=== PATIENT | female | born 1945 | race Caucasian/White ===

== ENCOUNTER 2017-07-30 05:53 | Day surgery (SDC) | payer MEDICARE, OTHER ==
[2017-07-30] MEDS ORDERED: Midazolam 1 MG/ML 2 ML SDV IV ONE ×3 (05:54→06:53)
[2017-07-30] MEDS ORDERED: fentaNYL 100 MCG/2 ML SDV IV ONE ×3 (05:54→06:52)
[2017-07-30] MEDS ORDERED: Sodium Chloride 0.9% 10 ML Syringe FLUSH PRN (06:00)
[2017-07-30] MEDS ORDERED: Dextrose 5%-0.45% NaCl 1,000 ML IV SCH (06:00)
[2017-07-30] MEDS ORDERED: Midazolam 1 MG/ML 2 ML SDV ONE (06:16)
[2017-07-30] MEDS ORDERED: fentaNYL 100 MCG/2 ML SDV ONE (06:17)
--- NOTE | 2017-07-30 08:23 | OR ---
DATE: 07/30/2017 PROCEDURE: Esophagogastroduodenoscopy and multiple pinch biopsies. INSTRUMENT USED: GIF-Q180 Olympus video panendoscope. PREMEDICATIONS: No oral topical anesthesia used. Fentanyl 100 mcg intravenous, Versed 1.5 mg intravenous. Nasal O2 cannula. The procedure was done under pulse oximetry, BP recording, and groundwater monitoring technician. INDICATION: The patient with persistent nausea and dyspepsia unexplained and not responsive to medical measures. Esophagogastroduodenoscopy is performed for detection of any active erosive lesions, Ford's esophagus and/or malignancy also under consideration, H. pylori status to be determined, endoscopic hemostasis therapy if needed. DESCRIPTION OF PROCEDURE: The scope was passed with ease. Adequate visualization of the esophagus was made from proximal to distal areas. No upper esophageal lesions identified. No distal esophageal stricture. No uphill or downhill esophageal varices. No Aster-Renner tear. No evidence of erosive esophagitis by [place] criteria. No esophageal polyp or tumor mass identified. Z-line was seen at around 39 cm distal to the oral verge, configuration consistent with grade 1 by ZAP classification. No proximal gastric varices noted. Gastric fundus examination by retroflexion showed no polypoid lesions. No gastric ulcer, malignant mass, or vascular ectasia identified. Duodenal bulb showed no ulcer. Visualized second part of the duodenum was unremarkable. Multiple pinch biopsies were taken from the gastric antrum and proximal body and sent for PyloriTek test for H. pylori, and if negative in an hour, tissue is to be sent for histopathology. No bleeding was noted from any of the visualized areas at the completion of examination. Photographs were taken of the duodenal bulb, gastric antrum, fundus, and distal esophagus. IMPRESSION: Normal study. The patient tolerated the procedure well. [facility] /[id number]
== END 2017-07-30 09:07 | disposition home or self-care (01) ==
LOC: DL.ENDO 05:53
PROVIDERS: ATTEND Internal Medicine Gastroenterology
DX: R11.0 Nausea (principal); R10.13 Epigastric pain; B96.81 Helicobacter pylori [H. pylori] as the cause of diseases classified elsewhere; I10 Essential (primary) hypertension; E78.5 Hyperlipidemia, unspecified; E03.9 Hypothyroidism, unspecified; F41.1 Generalized anxiety disorder; F32.9 Major depressive disorder, single episode, unspecified; F17.210 Nicotine dependence, cigarettes, uncomplicated; Z88.1 Allergy status to other antibiotic agents
CPT/HCPCS: 43239; J2250; J3010; J7042

== ENCOUNTER 2017-08-03 06:53 | Day surgery (SDC) | payer MEDICARE, OTHER ==
[~2017-08-03 06:53] MED LIST: Dextrose 5%-0.45% NaCl 1,000 ML IV SCH; Midazolam 1 MG/ML 2 ML SDV ONE; Sodium Chloride 0.9% 10 ML Syringe FLUSH PRN; fentaNYL 100 MCG/2 ML SDV ONE
[2017-08-03] MEDS ORDERED: fentaNYL 100 MCG/2 ML SDV IV ONE ×3 (06:54→07:35)
[2017-08-03] MEDS ORDERED: Midazolam 1 MG/ML 2 ML SDV IV ONE ×6 (06:54→07:42)
--- NOTE | 2017-08-03 10:56 | OR ---
DATE: 08/03/2017 PROCEDURES: Total colonoscopy, narrow-band imaging, and multiple pinch biopsies. INSTRUMENT USED: PCF-H180 [place] Olympus video colonoscope. PREMEDICATIONS: Fentanyl 100 mcg intravenous, Versed 3 mg intravenous. Nasal O2 cannula. The procedure was done under pulse oximetry, BP recording, and cardiac technician. INDICATION: The patient with persistent abdominal pain and progressive weight loss unexplained, not responsive to medical measures. Colonoscopic examination is done for detection of any polypoid lesions and removal, endoscopic hemostasis therapy if needed. DESCRIPTION OF PROCEDURE: Initial rectal exam was unremarkable. Rigid anoscopy was normal. The colonoscope was passed with ease. Numerous scattered diverticula were noted in the distal left colon along with deformity. The examination was compromised in a few areas due to the presence of adherent fecal material that could not be aspirated clear. The scope was passed with ease up to the ileocecal area. Photographs were taken of the cecum identified by ileocecal folds but were found to be a bit prominent. NBI views were obtained. Multiple pinch biopsies were obtained and sent for histopathology. No bleeding was noted from any of the visualized areas at the commencement of the examination. No stricture. No vascular ectasia. No large isolated ulcerations seen. No evidence of diffuse inflammatory bowel disease in the form of friability, contact bleeding, or ulcerations. Probing the proximal sides of folds and flexures using adequate distention and clearing up the stool material, withdrawal of the scope was made. Cecum to rectum time over 6 minutes. No bleeding was noted from any of the visualized areas at the completion of examination. IMPRESSION: Diverticulosis. The patient tolerated the procedure well. [facility] /[id number]
== END 2017-08-03 10:07 | disposition home or self-care (01) ==
LOC: DL.ENDO 06:53
PROVIDERS: ATTEND Internal Medicine Gastroenterology
DX: D12.0 Benign neoplasm of cecum (principal); K57.30 Diverticulosis of large intestine without perforation or abscess without bleeding; I10 Essential (primary) hypertension; E03.9 Hypothyroidism, unspecified; E78.5 Hyperlipidemia, unspecified; F41.1 Generalized anxiety disorder; F32.9 Major depressive disorder, single episode, unspecified; Z88.1 Allergy status to other antibiotic agents; F17.210 Nicotine dependence, cigarettes, uncomplicated
CPT/HCPCS: 45380; J2250; J3010; J7042; 88305

== ENCOUNTER 2018-03-03 08:19 | Day surgery (SDC) | payer MEDICARE, OTHER ==
[2018-03-03] MEDS ORDERED: Dexamethasone 4 MG/ML SDV IV ONE (08:20)
[2018-03-03] MEDS ORDERED: Midazolam 1 MG/ML 2 ML SDV IV ONE (08:20)
[2018-03-03] MEDS ORDERED: Sodium Chloride 0.9% 10 ML Syringe IV ONE (08:20)
[2018-03-03] MEDS ORDERED: Cataract Ophth Solution EYELF ONE (08:30)
[2018-03-03] MEDS ORDERED: Moxifloxacin 0.5% Ophth Soln 3 ML Bottle EYELF ONE (08:30)
[2018-03-03] MEDS ORDERED: Ondansetron 4 MG/2 ML SDV IVPUSH PRN (08:30)
[2018-03-03] MEDS ORDERED: Phenylephrine 10% Ophth Soln 5 ML Bot EYELF PRN (08:30)
[2018-03-03] MEDS ORDERED: Proparacaine 0.5% Ophth Soln 15 ML Bottle EYELF ONE (08:30)
[2018-03-03] MEDS ORDERED: Sodium Chloride 0.9% 10 ML Syringe FLUSH PRN (08:30)
[2018-03-03] MEDS ORDERED: Phenylephrine 10% Ophth Soln 5 ML Bot EYELF ONE (08:30)
[2018-03-03] MEDS ORDERED: Povidone-Iodine 5% Sterile Ophth Soln 30 ML Bottle EYELF ONE ×2 (08:30→09:26)
[2018-03-03] MEDS ORDERED: Acetaminophen 325 MG Tab PO PRN (08:30)
[2018-03-03] MEDS ORDERED: Timolol Maleate 0.5% Ophth Soln 5 ML Bottle EYELF ONE (08:30)
[2018-03-03] MEDS ORDERED: Tetracaine HCl/PF 0.5% 4 ML Bottle EYELF ONE (09:26)
[2018-03-03] MEDS ORDERED: Lidocaine 1% 30 ML SDV INJECT ONE (09:29)
[2018-03-03] MEDS ORDERED: Balanced Salt Solution Plus Ophth Irrig 500 ML Bottle IOCULAR ONE (09:30)
[2018-03-03] MEDS ORDERED: Chondroitin Sulfate/Hyaluronate Sodium Ophth Inj 0.75 ML Syringe EYELF ONE (09:30)
[2018-03-03] MEDS ORDERED: Vancomycin 500 MG SDV EYELF ONE (09:32)
[2018-03-03] MEDS ORDERED: Dexamethasone/Neomycin/Polymyxin B Ophth Oint 3.5 GM Tube EYELF ONE (09:39)
[2018-03-03] MEDS ORDERED: Apraclonidine 0.5% Ophth Soln 5 ML Bot EYELF ONE (09:39)
--- NOTE | 2018-03-03 16:17 | OR ---
DATE: 03/03/2018 PREOPERATIVE DIAGNOSIS: Visually significant mixed cataract, left eye. POSTOPERATIVE DIAGNOSIS: Visually significant mixed cataract, left eye. PROCEDURE: Extracapsular cataract extraction with intraocular lens implant, left eye. ANESTHESIA: Topical/local MAC. COMPLICATIONS: None. INDICATION: Ms. Tejeda was seen in the clinic. She has complained of blurred vision, difficulty reading, and her vision is progressively changed over time. Best spectacle corrected vision to the level of 20/50. Examination reveals mixed nuclear and cortical cataract. I explained options. I offered cataract surgery and I explained risks including the potential for infection, retinal detachment, loss of vision amongst others. We discussed implant options. She has requested a mono focal implant. OPERATIVE DESCRIPTION: After informed consent was obtained and the risks, benefits, and alternatives were explained, the patient was brought to the operative suite and topical anesthesia was administered. The patient was then prepped and draped in the sterile fashion and attention was placed on the left eye. A sterile lid speculum was placed into the left eye to allow operative exposure. A full-thickness paracentesis was made in the temporal portion of the operative eye. Preservative-free lidocaine 0.1 mL was injected into the anterior chamber followed by viscoelastic. A full-thickness corneal incision was then made into the anterior chamber. A bent needle cystotome was used to create a small skyler in the anterior capsule. The capsulorrhexis forceps was then used to create a 360-degree curvilinear capsulorrhexis. The nucleus was then removed using a phacoemulsification handpiece and the remaining cortical material was then removed with irrigation and aspiration handpiece. Following removal of the cortical material, the capsular bag was then inspected and noted to be free of any holes or tears. Viscoelastic was then injected into the capsular bag and the intraocular lens was inserted into the capsular bag. The viscoelastic material was then removed from both the anterior and posterior chambers and from behind the IOL. The lens and capsular bag were then reinspected. The IOL was well centered and the capsular bag intact. The wound and paracentesis sites were inspected and hydrated with balanced saline solution. Both were found to be self- sealing. The intraocular pressure was assessed digitally and found to be within normal range. A good red reflex was noted at the completion of the procedure. No complications occurred during the operation. At the completion of the procedure, Maxitrol, Voltaren, and Iopidine drops were placed into the operative eye. A sterile eye shield was placed over the operative eye and the patient was transported to the postoperative recovery area having tolerated the procedure well. Postoperative instructions were given along with a postoperative appointment. The patient was advised to call with any questions or concerns. [facility] /[id number]
== END 2018-03-03 10:43 | disposition home or self-care (01) ==
LOC: DL.SDS 08:19
PROVIDERS: ATTEND Ophthalmology
DX: H25.812 Combined forms of age-related cataract, left eye (principal); I10 Essential (primary) hypertension; F17.210 Nicotine dependence, cigarettes, uncomplicated; E78.5 Hyperlipidemia, unspecified; E03.9 Hypothyroidism, unspecified; F41.9 Anxiety disorder, unspecified; Z79.899 Other long term (current) drug therapy; Z79.82 Long term (current) use of aspirin
CPT/HCPCS: 00142; 66984; A9270; C1780; J1100; J2250; J3370; J7050

== ENCOUNTER 2018-03-10 07:24 | Day surgery (SDC) | payer MEDICARE, OTHER ==
[2018-03-10] MEDS ORDERED: Dexamethasone 4 MG/ML SDV IV ONE (07:25)
[2018-03-10] MEDS ORDERED: Midazolam 1 MG/ML 2 ML SDV IV ONE (07:25)
[2018-03-10] MEDS ORDERED: Sodium Chloride 0.9% 10 ML Syringe IV ONE (07:25)
[2018-03-10] MEDS ORDERED: Acetaminophen 325 MG Tab PO PRN (07:30)
[2018-03-10] MEDS ORDERED: Ondansetron 4 MG/2 ML SDV IVPUSH PRN (07:30)
[2018-03-10] MEDS ORDERED: Cataract Ophth Solution EYERT ONE (07:30)
[2018-03-10] MEDS ORDERED: Proparacaine 0.5% Ophth Soln 15 ML Bottle EYERT ONE (07:30)
[2018-03-10] MEDS ORDERED: Moxifloxacin 0.5% Ophth Soln 3 ML Bottle EYERT ONE (07:30)
[2018-03-10] MEDS ORDERED: Povidone-Iodine 5% Sterile Ophth Soln 30 ML Bottle EYERT ONE ×2 (07:30→08:46)
[2018-03-10] MEDS ORDERED: Phenylephrine 10% Ophth Soln 5 ML Bot EYERT ONE (07:30)
[2018-03-10] MEDS ORDERED: Timolol Maleate 0.5% Ophth Soln 5 ML Bottle EYERT ONE (07:30)
[2018-03-10] MEDS ORDERED: Sodium Chloride 0.9% 10 ML Syringe FLUSH PRN (07:30)
[2018-03-10] MEDS ORDERED: Phenylephrine 10% Ophth Soln 5 ML Bot EYERT PRN (07:30)
[2018-03-10] MEDS ORDERED: Tetracaine HCl/PF 0.5% 4 ML Bottle EYERT ONE (08:45)
[2018-03-10] MEDS ORDERED: Lidocaine 1% 30 ML SDV ONE (08:46)
[2018-03-10] MEDS ORDERED: Vancomycin 500 MG SDV EYERT ONE (08:47)
[2018-03-10] MEDS ORDERED: Chondroitin Sulfate/Hyaluronate Sodium Ophth Inj 0.75 ML Syringe EYERT ONE (08:48)
[2018-03-10] MEDS ORDERED: Balanced Salt Solution Ophth Irrig 500 ML Bottle IOCULAR ONE (08:48)
[2018-03-10] MEDS ORDERED: Apraclonidine 0.5% Ophth Soln 5 ML Bot EYERT ONE (08:49)
[2018-03-10] MEDS ORDERED: Diclofenac Sodium 0.1% Ophth Soln 5 ML Bottle EYERT ONE (08:49)
[2018-03-10] MEDS ORDERED: Dexamethasone/Neomycin/Polymyxin B Ophth Oint 3.5 GM Tube EYERT ONE (08:50)
--- NOTE | 2018-03-10 09:22 | OR ---
DATE: 03/10/2018 PREOPERATIVE DIAGNOSIS: Visually significant mixed cataract, right eye. POSTOPERATIVE DIAGNOSIS: Visually significant mixed cataract, right eye. PROCEDURE: Extracapsular cataract extraction with intraocular lens implant, right eye. ANESTHESIA: Topical/local MAC. COMPLICATIONS: None. INDICATION: Mrs. Tejeda was seen in the clinic. The examination revealed visually significant cataract. She is symptomatic with difficulty reading and blurred vision, which has been progressing. Slit-lamp examination reveals mixed nuclear and cortical cataract. I explained options. I offered cataract surgery, and I explained risks including the potential for infection, retinal detachment, and loss of vision amongst others. We discussed implant options. She has requested a monofocal implant. OPERATIVE DESCRIPTION: After informed consent was obtained and the risks, benefits, and alternatives were explained, the patient was brought to the operative suite and topical anesthesia was administered. The patient was then prepped and draped in the sterile fashion and attention was placed on the right eye. A sterile lid speculum was placed into the right eye to allow operative exposure. A full-thickness paracentesis was made in the temporal portion of the operative eye. Preservative-free lidocaine 0.1 mL was injected into the anterior chamber followed by viscoelastic. A full-thickness corneal incision was then made into the anterior chamber. A bent needle cystotome was used to create a small skyler in the anterior capsule. The capsulorrhexis forceps was then used to create a 360-degree curvilinear capsulorrhexis. The nucleus was then removed using a phacoemulsification handpiece and the remaining cortical material was then removed with irrigation and aspiration handpiece. Following removal of the cortical material, the capsular bag was then inspected and noted to be free of any holes or tears. Viscoelastic was then injected into the capsular bag and the intraocular lens was inserted into the capsular bag. The viscoelastic material was then removed from both the anterior and posterior chambers and from behind the IOL. The lens and capsular bag were then reinspected. The IOL was well centered and the capsular bag intact. The wound and paracentesis sites were inspected and hydrated with balanced saline solution. Both were found to be self- sealing. The intraocular pressure was assessed digitally and found to be within normal range. A good red reflex was noted at the completion of the procedure. No complications occurred during the operation. At the completion of the procedure, Maxitrol, Voltaren, and Iopidine drops were placed into the operative eye. A sterile eye shield was placed over the operative eye and the patient was transported to the postoperative recovery area having tolerated the procedure well. Postoperative instructions were given along with a postoperative appointment. The patient was advised to call with any questions or concerns. [facility] /[id number]
== END 2018-03-10 09:45 | disposition home or self-care (01) ==
LOC: EEVIPCON 07:24 → DL.SDS 07:24
PROVIDERS: ATTEND Ophthalmology
DX: H25.811 Combined forms of age-related cataract, right eye (principal); I10 Essential (primary) hypertension; H91.90 Unspecified hearing loss, unspecified ear; F17.210 Nicotine dependence, cigarettes, uncomplicated; E78.5 Hyperlipidemia, unspecified; E03.9 Hypothyroidism, unspecified; F41.9 Anxiety disorder, unspecified; Z79.82 Long term (current) use of aspirin; Z79.899 Other long term (current) drug therapy
CPT/HCPCS: 00142; 66984; A9270; C1780; J1100; J2250; J3370; J7050

== ENCOUNTER 2018-03-29 11:16 | Emergency (ER) | payer MEDICARE, OTHER ==
--- NOTE | 2018-03-29 11:27 | EDM.PDOC ---
ED HPI GENERAL MEDICAL PROBLEM - General Chief Complaint: Gastrointestinal Problem Stated Complaint: STOMACH ACHE, SHAKEY, SICK TO STOMACH Time Seen by Provider: 03/29/18 11:20 Source of Information: Reports: Patient, Old Records, RN, RN Notes Reviewed History Limitations: Reports: No Limitations - History of Present Illness INITIAL COMMENTS - FREE TEXT/NARRATIVE: Pt presents to ER by POV with c/o stomach ache, nausea, and shakiness. Pt states the Sx's have been present for over a year and only occur when she is having anxiety. Pt reports daily anxiety and take Alprazolam three times a day, and "cannot go without missing a dose". She has been on multiple other antidepressant and anxiety medications and she either cannot tolerate them or they do not work. Pt's family is concerned that she is overusing the Alprazolam , and are concerned that her behaviors are becoming more severe. She sees Robyn YIP in clinic for PCP and goes to the [facility] for mental health care. Duration: Chronic, Constant Location: Reports: Generalized Severity: Severe Improves with: Reports: None Worsens with: Reports: None Associated Symptoms: Reports: No Other Symptoms - Related Data Allergies Allergy/AdvReac Type Severity Reaction Status Date / Time azithromycin [From Zithromax] Allergy Vomiting Verified 03/29/18 11:33 Home Meds: Home Meds Levothyroxine Sodium 88 mcg PO ACBREAKFAST 07/23/17 [History] Melatonin 3 mg PO BEDTIME 07/23/17 [History] Propranolol HCl 20 mg PO BID 07/23/17 [History] Spironolactone [Aldactone] 25 mg PO DAILY 07/23/17 [History] Verapamil HCl [Verapamil ER Pm] 100 mg PO DAILY 07/23/17 [History] atorvaSTATin [Lipitor] 10 mg PO BEDTIME 07/23/17 [History] Acetaminophen/Diphenhydramine [Acetaminophen-Diphenhyd 500-25] 1 tab PO BEDTIME PRN 07/30/17 [History] Levomefolate Calcium [l-Methylfolate] 15 mg PO DAILY 03/03/18 [History] ALPRAZolam [Alprazolam] 0.5 mg PO TID 03/29/18 [History] Past Medical History HEENT History: Reports: Cataract, Hard of Hearing Cardiovascular History: Reports: High Cholesterol, Hypertension Respiratory History: Reports: None Gastrointestinal History: Reports: GERD Genitourinary History: Reports: None CARBONATION TESTER History: Reports: Musculoskeletal History: Reports: None Neurological History: Reports: Other (See Below) Other Neuro History: subarachnoid bleed Psychiatric History: Reports: Anxiety, Mood Swings Endocrine/Metabolic History: Reports: Hypothyroidism Hematologic History: Reports: None Immunologic History: Reports: None Oncologic (Cancer) History: Reports: None Dermatologic History: Reports: None - Infectious Disease History Infectious Disease History: Reports: Chicken Pox, Measles, Mumps - Past Surgical History Head Surgeries/Procedures: Reports: None HEENT Surgical History: Reports: Cataract Surgery, Other (See Below) Other HEENT Surgeries/Procedures: S/P STAPEDECTOMY RIGHT Cardiovascular Surgical History: Reports: None Respiratory Surgical History: Reports: None GI Surgical History: Reports: Colonoscopy, EGD Female Surgical History: Reports: Breast Biopsy Endocrine Surgical History: Reports: None Neurological Surgical History: Reports: None Musculoskeletal Surgical History: Reports: None Oncologic Surgical History: Reports: None Dermatological Surgical History: Reports: None Social & Family History - Family History Family Medical History: Noncontributory Cardiac: Reports: CAD Respiratory: Reports: COPD Musculoskeletal: Reports: Osteoarthritis, Osteoporosis Neurological: Reports: Alzheimers Disease, CVA, Seizure Endocrine/Metabolic: Reports: Diabetes, type II Oncologic: Reports: Breast, Colon, Skin - Caffeine Use Caffeine Use: Reports: Coffee Other Caffeine Use: 1 cup in the morning - Living Situation & Occupation Living situation: Reports: , Alone Occupation: Retired ED ROS GENERAL - Review of Systems Review Of Systems: ROS reveals no pertinent complaints other than HPI. ED EXAM, GI/ABD - Physical Exam Exam: See Below Exam Limited By: No Limitations General Appearance: Alert, No Apparent Distress, Anxious, Thin Eyes: Bilateral: Normal Appearance Ears: Normal External Exam, Normal Canal, Hearing Grossly Normal, Normal TMs Nose: Normal Inspection, Normal Mucosa, No Blood Throat/Mouth: Normal Inspection, Normal Lips, Normal Teeth, Normal Gums, Normal Oropharynx, Normal Voice, No Airway Compromise Head: Atraumatic, Normocephalic Neck: Normal Inspection, Supple, Non-Tender, Full Range of Motion Respiratory/Chest: No Respiratory Distress, Lungs Clear, No Accessory Muscle Use , Chest Non-Tender, Decreased Breath Sounds. No: Rales, Rhonchi, Wheezing Cardiovascular: Regular Rate, Rhythm, No Edema GI/Abdominal Exam: Normal Bowel Sounds, Soft, Non-Tender, No Distention (Female) Exam: Deferred Rectal (Female) Exam: Deferred Back Exam: Normal Inspection Extremities: Normal Inspection, Normal Range of Motion, Non-Tender, Normal Capillary Refill, No Pedal Edema Neurological: Alert, Oriented, CN II-XII Intact, Normal Cognition, Normal Gait, No Motor/Sensory Deficits Psychiatric: Anxious, Depressed Mood Skin Exam: Warm, Dry, Intact, Normal Color, No Rash Course - Vital Signs Last Recorded V/S: Last Vital Signs Temp 36.8 C 03/29/18 11:33 Pulse 64 03/29/18 11:33 Resp 17 03/29/18 11:33 BP 161/89 H 03/29/18 11:33 Pulse Ox 100 03/29/18 11:33 - Orders/Labs/Meds Labs: Laboratory Tests 03/29/18 03/29/18 03/29/18 Range/Units 12:00 12:09 12:09 WBC 5.2 (5.0-10.0) 10^3/uL RBC 4.65 (4.2-5.4) 10^6/uL Hgb 14.5 (12.0-16.0) g/dL Hct 44.6 (37.0-47.0) % MCV 95.9 (80-100) fL MCH 31.2 (27.0-34.0) pg MCHC 32.5 L (33.0-35.0) g/dL Plt Count 285 (150-450) 10^3/uL Neut % (Auto) 50.1 (42.2-75.2) % Lymph % (Auto) 35.1 (20.5-50.1) % [place] % (Auto) 11.9 H (2-8) % Eos % (Auto) 2.5 (1.0-3.0) % Baso % (Auto) 0.4 (0.0-1.0) % Sodium 139 (135-145) mmol/L Potassium 3.9 (3.6-5.0) mmol/L Chloride 103 (101-111) mmol/L Carbon Dioxide 27.0 (21.0-31.0) mmol/L Anion Gap 12.9 BUN 21 H (7-18) mg/dL Creatinine 0.9 (0.6-1.3) mg/dL Est Cr Clr Drug Dosing 39.39 mL/min Estimated GFR (MDRD) > 60 BUN/Creatinine Ratio 23.33 Glucose 91 (74-105) mg/dL Calcium 9.2 (8.4-10.2) mg/dl Magnesium 2.0 (1.8-2.5) mg/dL Total Bilirubin 0.8 (0.2-1.0) mg/dL AST 20 (10-42) IU/L ALT 17 (10-60) IU/L Alkaline Phosphatase 47 (42-121) IU/L Total Protein 7.1 (6.7-8.2) g/dl Albumin 4.0 (3.2-5.5) g/dl Globulin 3.1 Albumin/Globulin Ratio 1.29 Urine Color Light yellow (YELLOW) Urine Appearance Clear (CLEAR) Urine pH 6.0 (5.0-9.0) Ur Specific [place] <= 1.005 (1.005-1.030) Urine Protein Negative (NEGATIVE) Urine Glucose (UA) Negative (NEGATIVE) Urine Ketones Negative (NEGATIVE) Urine Occult Blood Trace-intact H (NEGATIVE) Urine Nitrite Negative (NEGATIVE) Urine Bilirubin Negative (NEGATIVE) Urine Urobilinogen 0.2 (0.2-1.0) mg/dL Ur Leukocyte Esterase Negative (NEGATIVE) Urine RBC 0-5 /HPF Urine WBC 0-5 (0-5/HPF) /HPF Ur Epithelial Cells Occasional /HPF Urine Bacteria Occasional (0-FEW/HPF) /HPF Meds: Medications Discontinued Medications Generic Name Dose Route Start Last Admin Trade Name Freq PRN Reason Stop Dose Admin Clonazepam 1 mg 03/29/18 11:56 03/29/18 12:13 Klonopin PO 03/29/18 11:57 1 mg ONETIME ONE Administration Departure - Departure Time of Disposition: 13:28 Disposition: Home, Self-Care 01 Condition: Fair Clinical Impression: Anxiety, Panic attacks - Discharge Information Instructions: Panic Attack, Living With Anxiety Forms: ED Department Discharge Additional Instructions: Today you received one dose of Clonazepam 1mg while in the ER. You have a tentative appointment at 9:30AM tomorrow at the [facility]. Call today to confirm the appointment.
[2018-03-29] MEDS: ClonazePAM 0.5 MG Tab PO ONE (12:13)
[2018-03-29 12:36] LABS: ANION GAP 12.9; CHLORIDE,CL 103 mmol/L (101-111); SODIUM,NA 139 mmol/L (135-145)
== END 2018-03-29 13:34 | disposition home or self-care (01) ==
LOC: DL.ED 11:16
DX: F41.0 Panic disorder [episodic paroxysmal anxiety] (principal); E78.00 Pure hypercholesterolemia, unspecified; I10 Essential (primary) hypertension; K21.9 Gastro-esophageal reflux disease without esophagitis; E03.9 Hypothyroidism, unspecified; Z88.1 Allergy status to other antibiotic agents; Z79.899 Other long term (current) drug therapy
CPT/HCPCS: 36415; 80053; 81001; 83735; 85025; 99284; A9270-GY

== ENCOUNTER 2022-10-07 05:22 | Day surgery (SDC) | payer MEDICARE, OTHER ==
[~2022-10-07 05:22] MED LIST changes: -Midazolam 1 MG/ML 2 ML SDV ONE; +Sodium Chloride 0.9% 10 ML Syringe FLUSH SCH; -fentaNYL 100 MCG/2 ML SDV ONE
[2022-10-07] MEDS ORDERED: Sodium Chloride 0.9% 10 ML Syringe FLUSH PRN (05:30)
[2022-10-07] MEDS ORDERED: Dextrose 5%-0.45% NaCl 1,000 ML IV SCH (05:30)
[2022-10-07] MEDS ORDERED: Midazolam 1 MG/ML 2 ML SDV ONE (06:17)
[2022-10-07] MEDS ORDERED: fentaNYL 100 MCG/2 ML SDV ONE (06:18)
[2022-10-07] MEDS ORDERED: fentaNYL 100 MCG/2 ML SDV IV ONE ×3 (06:26→06:29)
[2022-10-07] MEDS ORDERED: Midazolam 1 MG/ML 2 ML SDV IV ONE ×4 (06:28→06:38)
== END 2022-10-07 08:20 | disposition home or self-care (01) ==
LOC: DL.ENDO 05:22
PROVIDERS: ATTEND Internal Medicine Gastroenterology
DX: K51.411 Inflammatory polyps of colon with rectal bleeding (principal); K57.30 Diverticulosis of large intestine without perforation or abscess without bleeding; K64.8 Other hemorrhoids; K21.9 Gastro-esophageal reflux disease without esophagitis; F41.1 Generalized anxiety disorder; I10 Essential (primary) hypertension; F32.A Depression, unspecified; E03.9 Hypothyroidism, unspecified; E78.5 Hyperlipidemia, unspecified; F17.210 Nicotine dependence, cigarettes, uncomplicated; Z88.1 Allergy status to other antibiotic agents
CPT/HCPCS: 88305; J2250; J3010; J7042